=== PATIENT | male | born 1955 | race Caucasian/White ===

== ENCOUNTER 2024-09-06 19:34 | Inpatient (IN) | payer OTHER, SELFPAY ==
[2024-09-06 15:28] VITALS: BP 122/78
[2024-09-06 16:16] LABS: Hematocrit 39.3 % (39.0-52.0); Hemoglobin 13.6 g/dL (13.0-18.0); Mean Corp Hgb Conc. 34.6 g/dL (33.0-37.0); Mean Corpuscular Volume 87.3 fL (80.0-94.0); Nucleated Red Blood Cells % 0 % (-); Platelet Count 209 10^3/uL (130-400); Red Cell Dist. Width 13.2 % (11.5-14.5)
[2024-09-06 16:33] LABS: ALT (SGPT) 21 U/L (0-50); AST (SGOT) 27 U/L (17-59); Albumin 4.2 g/dl (3.5-5.0); Alkaline Phosphatase 67 U/L (38-126); Blood Urea Nitrogen 23 mg/dl (9-20); Calcium 9.5 mg/dl (8.4-10.2); Carbon Dioxide 28 mmol/L (22-30); Chloride 107 mmol/L (98-107); Glucose 91 mg/dl (70-99); Potassium 4.7 mmol/L (3.5-5.1); Sodium 140 mmol/L (135-145); Total Protein 7.2 g/dl (6.3-8.2); eGFR > 60.00
--- NOTE | 2024-09-06 17:34 | ED.SKININJ ---
HPI-Injury
General
Chief Complaint: Bite
Source: patient
Exam Limitations: none
Time Seen by Provider: 09/06/24 17:22
History of Present Illness-Injury
Initial Injury comments:
Patient was bitten by his own cat last evening. Cat is old and chronically ill. Baseline behavior however. Cat has not had rabies vaccine but is an indoor cat. Tetanus less than 5 to the patient. Complaining of swelling pain. Was sent in by
the primary physician for IV antibiotics
Past History
Past History
ED Past Surgical History: Other (Sinus surgery/LASEK surgery)
Review of Systems
Review of Systems
All Other Systems: Not applicable
Constitutional: Denies fever
Phy Exam
Physical Exam
Physical Exam:
GENERAL: Alert and oriented in no apparent distress
CARDIAC: Regular rate and rhythm
LUNGS: No respiratory distress
NEUROLOGICAL: Alert and oriented , grossly non-focal
SKIN: Warm and dry. Right hand with 3 puncture wounds dorsally with surrounding cellulitis and swelling. Lymphangitis extending up to the mid upper arm.
MUSCULOSKELETAL: Edema to the right hand. Good distal pulses and color. Some pain with extension of the digits. Motor or sensory neurovascular intact otherwise
PSYCH: Normal and appropriate interaction.
Course
Orders/Labs/Results
Orders:
Orders
09/06/24 Dinner
NPO
Allow oral meds: Yes
Allow clear liquids: No
NPO with Ice Chips: No
09/06/24 15:34
CR Hand - Right Min 3 Views Urgent
Comment:
Reason For Exam: cat bite
CR Wrist - Right Min 3 Views Urgent
Comment:
Reason For Exam: cat bite
09/06/24 15:58
Complete Blood Count/With Diff Urgent
Comprehensive Metabolic Panel Urgent
09/06/24 17:31
Ketorolac [Toradol] 15 mg IV NOW STA
09/06/24 17:58
Ampicillin/Sulbactam 3 G [Unasyn] 3 gm 0.9% Sodium Chloride 100 ml [Nss] 100 ml IV NOW
09/06/24 18:46
Consult Orthopedic [ORTHOPEDIC CONSULT] Routine
Consulting Provider: Federico Lopez
Was physician already notified: Yes
Reason for consult: Cat bite right hand right wrist with lymphangitis
09/06/24 18:47
Admit/Transfer Patient As Directed
Co-Sign Provider:
Level of Care: Inpatient admission
Assign to:: Medical/Surgical
Physician / Group: norma bradley
Diagnosis: Right hand/wrist cat bite with lymphangitis
Reason for Hospitalization: Right hand/wrist cat bite with lymphangitis
Expected length of stay greater than two midnights?: Yes
ELOS- Estimated Length of Stay in days: 3
I certify the patient meets the requirements for IP care: Yes
Code Status As Directed
Resuscitation Status: Full Code
09/06/24 18:50
PRN Pain Medication Management As Directed
May give lesser potent ordered pain med per pt: Yes
preference::
Protocol:: Medication orders for pain may be administered in a
manner that supports deferring to patient preference
when the pt is:
- Requesting an ordered lesser potent pain medication.
Least to most potent pain medications are defined
as: acetaminophen < NSAID < tramadol < opioids
(morphine, oxycodone, hydromorphone).
- Requesting a lesser dose of the same medication IF
ORDERED.
- Requesting a less intrusive route of administration
if both routes are prescribed by the provider (PO <
IV).
09/06/24 18:51
Ondansetron Injectable [Zofran] 4 mg IV Q6HPRN PRN
Oxycodone/Acetaminophen [Percocet 5/325] 1 tablet PO NOW STA
09/06/24 19:05
Volar Right-Treatment ONCE
Abnormal Lab Results
09/06/24
15:58
RBC 4.50 L 10^6/uL
(4.70-6.10)
MPV 10.7 H fL
(7.4-10.4)
Absolute Neuts (auto) 7.1 H 10^3/uL
(1.4-6.5)
Absolute Monos (auto) 0.8 H 10^3/uL
(0.1-0.6)
Neutrophils % 76.5 H %
(42.2-75.2)
Lymphocytes % 13.6 L %
(20.5-51.1)
BUN 23 H mg/dl
(9-20)
09/06/24 15:58
09/06/24 15:58
Vital Signs
Initial and Last Documented VS:
Initial Vital Signs
Temp Pulse Resp BP Pulse Ox
98.4 F 87 15 122/78 99
09/06/24 15:28 09/06/24 15:28 09/06/24 15:28 09/06/24 15:28 09/06/24 15:28
Last Documented Vital Signs
Temp Pulse Resp BP Pulse Ox
98.4 F 87 15 122/78 99
09/06/24 15:28 09/06/24 15:28 09/06/24 15:28 09/06/24 15:28 09/06/24 17:36
MDM/Problems Addressed
Differential Diagnosis Includes:
Cellulitis/lymphangitis. Warrants IV antibiotics. Pain control. Admission for further care
*Radiology
Radiology exam reviewed: preliminary read by ED provider (neg)
*Pulse Oximetry
SaO2: 99
Oxygen Mode of Delivery: Room air
Patient hypoxic: no (99)
*Critical Care Note
Total Time (30-74mins, 75-104mins- exclusive of procedures): Not Applicable
Update Note
Update Note:
I did stress the Should be checked by the patient's vet for rabies despite them being sure he is a totally in house cat
ED Attending Note
-
Portions of this chart may have been created with voice recognition software.� Occasional wrong word or��sound alike� substitutions may have occurred due to the inherent limitations of voice recognition software.
Discharge Plan
Departure
Patient Disposition: Admit
Date of Disposition: 09/06/24
Time of Disposition: 17:36
Presentation/result/management discussed w/ accepting MD/DO: Hospitalist
Discharge Problem:
Cellulitis/lymphangitis secondary to cat
Prescriptions:
No Action
acetaminophen [Tylenol] 325 mg Tablet
650 mg PO ONCE PRN (Reason: mild pain)
simvastatin 40 mg Tablet
40 mg PO Q48H@2200
naproxen sodium [Aleve] 220 mg Tablet
440 mg PO DAILYPRN PRN (Reason: mild pain)
Systane (PF) 0.4-0.3 % Dropperette
1 drp BOTH EYES DAILYPRN PRN (Reason: allergies)
cholecalciferol (vitamin D3) 25 mcg (1,000 unit) Tablet
25 mcg PO DAILY
prednisolone acetate 1 % Drops,Suspension
1 drp RIGHT EYE QID
Patient Comments:
09/06/2024, pt. started using this med. yesterday (09/05/2024) for preparation for cataract surgery; was not able to find this med. in pharmacy and ecw records.
Referrals:
UNKNOWN - PT DOES,NOT KNOW [Unknown Provider]
Interventions
Interventions:
*Risk Screen - Suicide Last Done: 09/06/24 15:28
*General Assessment Last Done: 09/06/24 17:43
*Neglect/Abuse Screening Last Done: 09/06/24 15:28
ED-Skin Assessment Last Done: 09/06/24 17:41
Discharge Date and Time
Print Language: JORDANIAN
[2024-09-06] MEDS: TORADOL 15 MG IV (17:37)
[2024-09-06 17:43] VITALS: BMI 24.9
[2024-09-06] MEDS: UNASYN IV ×2 (18:15→23:58)
--- NOTE | 2024-09-06 18:18 | HPS.HSE ---
Addendum entered and electronically signed by Luana Hidalgo MD 09/06/24 22:26:
I have personally seen and examined the patient. I have reviewed the patient with [employer]DER or PA and agree with their note.
68-year-old male with HLD presenting with right arm pain, erythema, and swelling due to pet cat bite.
On exam VSS, NAD, MMM, PERRLA, heart RRR, no MGR, Lungs CTAB, Abd soft/nt/nd/NABS, no LE edema, right hand and arm very swollen with erythema and tenderness, multiple puncture wound, unable to express pus.
I reviewed the labs and imaging.
Assessment and plan:
Right hand cat bite with cellulitis and lymphangitis -
IV antibiotics and pain control
Ortho consulted and they have asked the patient remain n.p.o.
Preoperative medical evaluation -
RCRI score 0, no known heart disease, not on any blood thinners, will check preop EKG as last was in 2008 and NSR, from medical standpoint patient optimized and can proceed to OR with no further testing
Original Note:
Family Physician
-
Family Physician: KEVIN Sahu
Chief Complaint
-
Cat bite right hand and right wrist
History of Present Illness
68-year-old male who was bit by his cat last evening 09/05/2024 to his right dorsal hand overlying the extensor tendons of the thumb at the level of the wrist, index finger, middle finger and fourth finger at the level of the hand with erythema and
lymphangitis extending into the right upper arm. 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 He reports last night he took 2 Aleve and this morning Tylenol without any relief he had widespread erythema that
was rapid onset. The patient is right-handed. The patient reports his cat is old chronically ill has not had rabies vaccine but is an indoor cat his tetanus is up-to-date he is complaining of swelling and pain. He has past medical history of
hyperlipidemia.
Medical History
Past Medical History
Past Medical History: Reports Other (HLD)
Past Surgical History: Reports Other
Additional Past Surgical History:
Sinus surgery 2003, Lasix eye surgery 2007
Social History
Tobacco: Non-smoker
Alcohol: None
Drug: None
Personal:
Living: With Family ()
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
Family History
Family History: Other (Mother age 82 RA Father age 95 CHF patient is only child)
Allergies / Home Medications
Allergies reflects when Allergies were last updated in [facility].
Home Medications with original date entered in [facility]
Allergy/Medication List:
Allergies
Allergy/AdvReac Type Severity Reaction Status Date / Time
No Known Allergies Allergy Verified 09/06/24 15:33
Home Medications
acetaminophen 325 mg tablet (Tylenol) 650 mg PO ONCE PRN mild pain 09/06/24
cholecalciferol (vitamin D3) 25 mcg (1,000 unit) tablet 25 mcg PO DAILY 09/06/24
naproxen sodium 220 mg tablet (Aleve) 440 mg PO DAILYPRN PRN mild pain 09/06/24
peg 400-propylene glycol (PF) 0.4 %-0.3 % eye drops in a dropperette (Systane (PF)) 1 drp BOTH EYES DAILYPRN PRN allergies 09/06/24
prednisolone acetate 1 % eye drops,suspension 1 drp RIGHT EYE QID 09/06/24
simvastatin 40 mg tablet 40 mg PO Q48H@2200 09/06/24
Review of Systems
-
History Source: Patient and Family ()
A 12 point ROS was completed and negative except as noted: Yes
Constitutional: Denies Fever
EENT: Denies Sore Throat or Runny Nose
Respiratory: Denies Cough or Trouble Breathing
Cardiac: Denies Chest Pain, Diaphoresis, Palpitations or Syncope
Abdomen/GI: Denies Abdominal Pain, Nausea, Vomiting, Diarrhea or Constipated
: Denies Dysuria, Frequency, Flank Pain or Incontinence
Musculoskeletal: Reports Joint Pain (Right hand and wrist) and Other (right dorsal hand overlying the extensor tendons of the thumb at the level of the wrist, index finger, middle finger and fourth finger at the level of the hand with erythema and
lymphangitis extending into the right upper arm)
Skin: Denies Itching or Rash
Neurological: Denies Dizzy or Headache
Endocrine: Reports No Symptoms
Hematologic/Lymphatic: Reports No Symptoms
Psych: Reports Calm
Physical Exam
Vital Signs
Vital Signs
Temp Pulse Resp BP Pulse Ox
98.4 F 87 15 122/78 99
09/06/24 15:28 09/06/24 15:28 09/06/24 15:28 09/06/24 15:28 09/06/24 17:36
Physical Exam
General: Conversant and Pain; No Fever or Chills
HEENT: NormoCephalic, Anicteric, Moist mucous membranes, PERRLA and Gillis Conjunctivae
Respiratory: Clear; No Wheezes, Rales or Rhonchi
Cardiac: S1/S2 and Regular Rhythm; No Murmur, Rub, Gallop or Peripheral Edema
GI: Soft, Non Tender, Non Distended and Normal Bowel Sounds
Genito-urinary: Deferred by me
Musculoskeletal: No Clubbing, Cyanosis (To all finger nailbeds) and Other (right dorsal hand overlying the extensor tendons of the thumb at the level of the wrist, index finger, middle finger and fourth finger at the level of the hand with erythema
and lymphangitis extending into the right upper arm)
Skin: Warm and Dry
Neuro: AO x 3, Nonfocal/grossly intact, Cranial Nerves Intact and Other (Limited range of motion of fingers and wrist due to cat bite overlying extensor tendons); No Slurred Speech, Facial Droop, Tremors or Sedated
Psych: Calm
Laboratory Results
-
09/06/24 15:58
09/06/24 15:58
Laboratory Results
Total Bilirubin 0.7 mg/dl (0.2-1.3) 09/06/24 15:58
AST 27 U/L (17-59) 09/06/24 15:58
ALT 21 U/L (0-50) 09/06/24 15:58
Alkaline Phosphatase 67 U/L (38-126) 09/06/24 15:58
Impression/Plan
-
Impression/plan:
Admit to [facility]
#Cat bite right dorsal hand/wrist overlying tendons thumb, index, middle finger with cellulitis and lymphangitis
Patient is right handed
-Consult Ortho-Dr. Lopez aware will have patient n.p.o. starting now 1843
- Percocet as needed
- IV Unasyn
- Follow CBC
-PT/OT
#HLD
Continue simvastatin every other day
DVT prophylaxis
Subcu heparin
Full code
--- NOTE | 2024-09-06 18:46 | PHANOTE ---
09/06/2024, pt. states to have started Prednisolone eye drops in preparation for cataract surgery; could not confirm this med. w/ pharmacy and ecw records.
[2024-09-06] MEDS: PERCOCET 5/325 1 TABLET PO ×2 (19:41→23:58)
[2024-09-06] MEDS: ZOFRAN 4 MG IV (19:43)
[2024-09-06 20:01] VITALS: BP 124/82
[2024-09-06 20:52] VITALS: BP 117/78; BMI 27.0
[2024-09-06] MEDS: NSS 1000 IV (21:30)
--- NOTE | 2024-09-06 22:32 | PTCARENOTE ---
Patient arrived to unit with dx of Right hand/ wrist cat bite with lymphangitis. AAOX3. Right hand brace in place with multiple small puncture scabs to right hand and + 2 swelling, redness and warmth. Oriented to unit. Call cheng within reach.
[2024-09-06 23:21] VITALS: BP 105/58
[2024-09-07] MEDS: UNASYN IV ×4 (05:16→23:47)
[2024-09-07] MEDS: PERCOCET 5/325 1 TABLET PO ×2 (05:23→10:04)
--- NOTE | 2024-09-07 06:27 | CON.ORTHO ---
Consultation
-
Date/Time Consultation Requested: 09/06/2024 @ 18:46
Date/Time Consultation Performed: 09/07/2024 @ 6:15 AM
Requesting Provider: KEVIN Wilkinson
Performing Provider: Augustine Farias PA-C for Dr. Federico Lopez
Reason for Consultation: Right Hand/Wrist Cat Bite
Consultation - Orthopedics
History
Orthopedic Surgery Note
CC: Right Hand/Wrist Cat Bite x Friday09/05/2024 @ 9/10 PM
HPI: The patient is a 68-year-old [id number] male with a past medical history significant for Hyperlipidemia who presented to [facility] yesterday evening 09/06/2024 at the request of his PCP for evaluation of right hand/wrist cat bite. DOI:
09/05/2024. He reports sustaining a cat bite to the dorsal and radial aspects of his right hand/wrist with erythema and lymphangitis extending into the right upper arm. He reports that he took 2 Aleve yesterday morning and Tylenol without any
relief. Due to rapid onset of widespread erythema with pain and swelling, he presented to his PCP who recommended reporting to the ED for initiation of IV antibiotics. The patient reports that his cat is old and chronically ill; has not had rabies
vaccine but is an indoor cat. He reports that his tetanus is up-to-date. IV Unasyn was started. He reports increased pain to the radial and dorsal aspects of the right hand/wrist with range of motion. Since admission, he reports that his pain
has improved, however continues with streaking erythema about his right upper extremity and swelling. He denies any paresthesias. Orthopedic Surgery was consulted for treatment recommendations moving forward. He is currently NPO.
PMH/PSH: Hyperlipidemia. Sinus surgery 2003. Lasix eye surgery 2007.
Medications: Reviewed.
Family History: Family history was reviewed. Noncontributory.
Social history: Nonsmoker, no illicit drugs.
Exam
General appearance: Pleasant. No acute distress.
Head: Normocephalic/atraumatic
Nose: No lesions or discharge.
Skin: No obvious rashes or open wounds
Lungs: No audible wheezing, no cough or sputum production
Musculoskeletal:
RUE: Physical examination of the right upper extremity reveals 5 cat bites/puncture wounds to the radial and dorsal aspects of the right wrist. There is some scant purulence about the radial puncture wound. There is no active drainage. There is
erythema noted to the dorsum of the right hand/wrist which streaks proximally about the volar aspect of the antebrachium into the brachium. There is tenderness to palpation over the radial and dorsal aspects of the right wrist. There is tenderness
to palpation dorsally between the index and thumb/first webspace. There is no tenderness to palpation about the flexor tendon sheaths. He is able to demonstrate approximately 85% of a full composite fist, however endorses pulling/pain to the
dorsal wrist while doing so. Wrist range of motion is intact, however overall diminished with pain. Elbow range of motion intact. Fingers are pink and warm. Capillary refill is less than 2 seconds. Sensation is intact to light touch. NVI
distally.
Xrays:
CR Hand - RIGHT Min 3 Views was obtained at [facility] on 09/06/2024 and was made available for my review today. Impression: No acute osseous abnormality.
CR Wrist - RIGHT Min 3 Views was obtained at [facility] on 09/06/2024 and was made available for my review today. Impression: There is no evidence of acute fracture or dislocation.
Assessment: 68-year-old bkuat-ygfq-[id number] male with cat bite to the dorsal wrist/hand with cellulitis and lymphangitis.
Plan:
1) Continue with IV Abx per primary team (IV Unasyn).
2) Incorporate warm soaks TID for ~5-10 minutes.
3) Ice therapy and elevation for edema control. Pain control per primary team.
4) Erythema outlined with marker.
5) May utilize Velcro cock-up wrist brace as needed for comfort/immobilization.
6) Patient to remain NPO for the time being. Discussed with Dr. Duenas, who will also evaluate the patient this morning to ensure no acute surgical intervention is necessary. Further recommendations to come after Dr. Duenas evaluates patient.
7) Orthopedic surgery will continue to follow.
UPDATE - Patient seen and evaluated by Dr. Duenas. Patient may have a diet. Continue with Abx and warm soaks. Orthopedic surgery will continue to follow along and closely monitor clinical picture.
Allergies / Home Medications
Allergy/AdvReac Type Severity Reaction Status Date / Time
No Known Allergies Allergy Verified 09/06/24 15:33
�Medication �Instructions �Recorded
acetaminophen 325 mg tablet 650 mg PO ONCE PRN mild pain 09/06/24
(Tylenol)
cholecalciferol (vitamin D3) 25 25 mcg PO DAILY 09/06/24
mcg (1,000 unit) tablet
fluocinonide 0.1 % topical cream 1 applic topical DAILY PRN itching 09/06/24
naproxen sodium 220 mg tablet 440 mg PO DAILYPRN PRN mild pain 09/06/24
(Aleve)
peg 400-propylene glycol (PF) 0.4 1 drp BOTH EYES DAILYPRN PRN 09/06/24
%-0.3 % eye drops in a dropperette allergies
(Systane (PF))
prednisolone acetate 1 % eye 1 drp RIGHT EYE QID 09/06/24
drops,suspension
simvastatin 40 mg tablet 40 mg PO Q48H@2200 09/06/24
Vital Signs / Lab Results
Temp Pulse Resp BP Pulse Ox
98.8 F 72 20 105/58 98
09/06/24 23:21 09/06/24 23:21 09/06/24 23:21 09/06/24 23:21 09/06/24 23:21
[2024-09-07 07:37] LABS: Hematocrit 36.9 % (39.0-52.0); Hemoglobin 12.6 g/dL (13.0-18.0); Mean Corp Hgb Conc. 34.1 g/dL (33.0-37.0); Mean Corpuscular Volume 87.2 fL (80.0-94.0); Nucleated Red Blood Cells % 0 % (-); Platelet Count 181 10^3/uL (130-400); Red Cell Dist. Width 13.2 % (11.5-14.5)
[2024-09-07] MEDS: VITAMIN D3 (cholecalciferol) 25 MCG PO (07:40)
--- NOTE | 2024-09-07 07:44 | W.PN.HOSP.TC ---
Addendum entered and electronically signed by Sumi Ramirez MD 09/07/24 14:20:
I saw and evaluated the patient independently. I reviewed the resident�s note and agree with findings and plan as documented by Dr. Allen.
GENERAL: well developed, well nourished, male tearful and in distress from pain
HEENT: NC/AT
HEART: regular rate and rhythm, +S1, +S2
LUNGS : clear to auscultation bilaterally
ABDOM: soft, nontender, nondistended, + bowel sounds
EXT: no cyanosis, clubbing--right hand swollen, red, warm, with bite puncture gonzales appearing to be draining pus on dorsum of hand
NEUROLOGIC: grossly intact
Cellulitis and lymphangitis of the right hand secondary to cat bite--apprec ortho--no surgery at this time--cont IV unasyn--consult ID--pain control
HLD--cont statin
Vitamin D deficiency--cont supplements
DVT proph--SC heparin
CODE STATUS--full code
Original Note:
Today's Communication/Plan
-
Patient no longer n.p.o. as surgery not indicated -regular diet
Continue IV Unasyn -infectious diseases consulted
0.25 mg IV Dilaudid added every 4 hours as needed
Trial of 30 mg Toradol for pain control
Assessment / Plan
Assessment / Plan
HPI: Patient is a 68-year-old male with a past medical history of hyperlipidemia who presented to the emergency department with right arm pain, erythema, and swelling due to a pet cat bite. His cat bit him on 09/05/2024 at the dorsal area of his
right hand overlying the extensor tendons of the thumb at the level of the wrist, index finger, middle finger, and fourth finger at the level of the hand with erythema and lymphangitis extending into the right upper arm. He is right-handed and
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 The evening prior to his presentation he took 2 Aleve and the morning of his presentation he took a Tylenol without any relief or reduction in the widespread erythema that was on his hand. The
patient reported that his cat is old and chronically ill. The cat is not been vaccinated for rabies. He believes that his tetanus shot is up-to-date. The patient was admitted to the hospital for cellulitis and lymphangitis secondary to cat bite.
Assessment/Plan:
-Cellulitis and lymphangitis of the right hand secondary to cat bite: Unresolved
Orthopedics has been consulted�appreciate orthopedic recommendations -wound care as per orthopedic recommendations
Patient no longer n.p.o. after being evaluated by orthopedics -they do not believe that surgical intervention is necessary at the present time and will continue to follow
Continue IV Unasyn
Infectious diseases consulted -swelling and erythema has not reduced despite IV antibiotics -possible delayed response to antibiotics
-Acute pain of the right hand and wrist:
Patient received 30 mg IV Toradol -we will check patient response to pain med
Dilaudid 0.25 mg IV every 4 hours as needed added
- Hyperlipidemia: Stable�monitoring
Continue home simvastatin
-Vitamin D deficiency: Stable�monitoring
Continue home vitamin supplementation
FULL CODE STATUS
DVT Prophylaxis: Heparin subcu
Imaging:
- X-ray of the right hand 3 views conducted on 09/06/2024:
No acute osseous abnormality.
- X-ray of the right wrist 3 views conducted on 09/06/2024:
There is no evidence of acute fracture or dislocation
Procedures:
Anticipated Discharge: 24 - 48 hours
Subjective/Interval History
-
Date of Service: September 07, 2024
Met with patient at the bedside. He is calm and pleasant in discussion and had many questions about his swelling with erythema. He is able to move his hand and arm but it is extremely painful to do so. He explained how the cat bite occurred and
it involved his cat getting upset with him while he was petting the cat. Apparently the cat has an inflammatory condition that requires weekly injections. Unfortunately, a couple days before the cat was due for a follow-up injection this episode
occurred and the cat bit down extremely hard and pierced the skin of the hand. The patient likened the bite to 'a engineering manager electronics.'
Objective Data
-
Labs:
Labs
09/07/24 07:09
09/07/24 07:09
Vital Signs:
Vital Signs
Temp Pulse Resp BP Pulse Ox
98.8 F 72 20 105/58 98
09/06/24 23:21 09/06/24 23:21 09/06/24 23:21 09/06/24 23:21 09/06/24 23:21
I&O
09/06/24 09/07/24 09/08/24
06:59 06:59 06:59
Intake Total 810 / 810
Balance 810 / 810
Review of Systems
-
Constitutional: Reports No Symptoms
EENT: Reports No Symptoms Reported
Respiratory: Reports No Symptoms
Cardiac: Reports No Symptoms
Abdomen/GI: Reports No Symptoms
Breast: Reports No Symptoms
Genitourinary: Reports No Symptoms
Musculoskeletal: Reports Joint Pain (Right hand and wrist), Joint Swelling (Right hand and wrist), Muscle Pain (Right hand and wrist) and Muscle Stiffness (Right hand and wrist)
Skin: Reports Other (Erythema distributed throughout the right hand on the dorsal surface. Punctate spots seen where the cat pierced the skin with its teeth. Pus accumulation near the bite gonzales.)
Neuro: Reports No Symptoms
Endocrine: Reports No Symptoms
Physical Exam
-
General: Well Developed, Well Nourished and No Apparent Distress
HEENT: Normocephalic and Atraumatic
Respiratory: Clear to Auscultation
Cardiac: Regular Rhythm and S1/S2
Breast: Deferred by me
GI: Soft, Nontender and Nondistended
Musculoskeletal: No Clubbing, No Cyanosis and Edema, Right Upper Extrem
Skin: Warm, Dry and Other (Obvious cellulitis, increased temperature, erythema of the right hand, wrist, and forearm on the dorsal surface. Erythema also on the ventral portion of the right forearm as well.)
Neuro: Awake, Alert, Oriented and AO x 3
Psych: Calm
[2024-09-07 08:28] LABS: ALT (SGPT) 16 U/L (0-50); AST (SGOT) 21 U/L (17-59); Albumin 3.5 g/dl (3.5-5.0); Alkaline Phosphatase 58 U/L (38-126); Blood Urea Nitrogen 21 mg/dl (9-20); Calcium 8.6 mg/dl (8.4-10.2); Carbon Dioxide 26 mmol/L (22-30); Chloride 110 mmol/L (98-107); Estimated Creatinine Clearance 56 ml/min; Glucose 85 mg/dl (70-99); Potassium 4.1 mmol/L (3.5-5.1); Sodium 139 mmol/L (135-145); Total Protein 6.1 g/dl (6.3-8.2); eGFR > 60.00
[2024-09-07 08:31] VITALS: BP 101/59
--- NOTE | 2024-09-07 10:37 | PTCARENOTE ---
warm soaks to R hand/ wrist for 10 minutes initiated per standing order
--- NOTE | 2024-09-07 11:53 | CM ---
CM reviewed chart, patient seen bedside, initial assessment completed. Patient resides with his in a two story home, no steps to enter, full flight of stairs to second floor. Patient denies use of DME, VN/SNF history. Patient PCP Dr. Poon
Jael, pharmacy [facility], confirms prescription coverage. Patient denies insecurities at home. Patient remains on IV antibiotics. CM will continue to follow for all discharge planning needs.
Plan; home no needs likely
[2024-09-07] MEDS: ZOFRAN 4 MG IV (12:05)
[2024-09-07] MEDS: TORADOL 30 MG IV (13:49)
--- NOTE | 2024-09-07 15:30 | PTCARENOTE ---
Patient warm soaks applied to R hand/wrist per standing order 10 minutes
[2024-09-07] MEDS: NSS 1000 IV (15:40)
[2024-09-07 16:23] VITALS: BP 102/64
--- NOTE | 2024-09-07 17:44 | CON.ID ---
Consultation
-
Date/Time Consultation Requested: 09/07/2024 1101
Date/Time Consultation Performed: 09/07/2024 1725
Requesting Provider: Dr. Allen
Performing Provider: Dr. Ramon
Reason for Consultation: Right hand cat bite
Chief Complaint / Past History
History of Present Illness
Alexander Meade is a 68-year-old man being evaluated at the request of Dr. Allen regarding a right hand cat bite. History is obtained from chart review, along with patient interview.
The patient reports that he has a 15-year-old cat that has several medical conditions, including gingivitis and 'body inflammation'. The Evidently received shots of steroids every 3 weeks. On Friday night, the patient was petting the cat, when the
cat turned and bit his hand several times on the dorsal aspect of the hand. After a quick 'smack' the cat released, and at that point in time the patient's hand was bleeding. He quickly washed the area, and then applied Neosporin and bandages to
the area. Later, because the hand was hurting and swollen he applied an ice pack. The next day, he made an appointment with his PCP, but because of the noted swelling and the development of lymphangitic spread up his forearm, the patient was sent
to the emergency room for further evaluation. He arrived in the ER around 3 PM. He was started on empiric antibiotics. Since that time, the hand has continued to swell, and Infectious Diseases is asked to comment upon further antimicrobial
therapy.
Patient denies any axillary pain. He denies any fevers or chills. He notes that there has been some drainage from several of the puncture areas.
Past History
Additional Past Medical History:
HDL
Eczema
Tinnitus
Additional Past Surgical History:
Lasix surgery
Sinus surgery
Allergy History:
No Known Allergies Allergy (Verified 09/06/24 15:33)
Medications Reviewed: Yes
Current Antibiotics:
Unasyn 3 g IV every 6 hours
Social History
Tobacco: Non-Smoker
Alcohol: None
Drug: None
Personal:
Living: With Family
Employment: Employed
Family History
Family History: Not Pertinent
Review of Systems
Vital Signs
Temp Pulse Resp BP Pulse Ox
98.1 F 78 16 102/64 96
09/07/24 16:23 09/07/24 16:23 09/07/24 16:23 09/07/24 16:23 09/07/24 16:23
Physical Exam
Physical Exam
Constitutional: No Acute Distress, Comfortable and Non-toxic
Head: Normocephalic
Eyes: Pupils Equal, Pupils Round, No Conjunctival Hemorrhage and Sclera Anicteric
Oral: No Thrush and No Ulcers
Cardiovascular: Regular Rate and S1/S2; Negative S3/S4
Pulmonary: Clear; Negative Wheezes, Rales or Rhonchi
Gastrointestinal: Soft, Non Tender, Non Distended and Normal Bowel Sounds
Extremities: Edema (Right hand) and Erythema (Right hand); Negative Cyanosis
Musculoskeletal: Other (Decreased range of motion right hand)
Skin: Warm and Dry
Neurological: Awake and Alert
Psychological: Calm
Lab / Diagnostic Study Results
09/07/24 07:09
09/07/24 07:09
Abs Immat Gran (auto) 0.0 10^3/uL (0-0.05) 09/07/24 07:09
Absolute Neuts (auto) 6.5 10^3/uL (1.4-6.5) 09/07/24 07:09
Absolute Lymphs (auto) 1.3 10^3/uL (1.2-3.4) 09/07/24 07:09
Absolute Monos (auto) 0.9 10^3/uL (0.1-0.6) H 09/07/24 07:09
Absolute Basos (auto) 0.0 10^3/uL (0-0.2) 09/07/24 07:09
Immature Gran % 0.2 % (0-0.5) 09/07/24 07:09
Neutrophils % 74.2 % (42.2-75.2) 09/07/24 07:09
Lymphocytes % 14.8 % (20.5-51.1) L 09/07/24 07:09
Monocytes % 9.7 % (1.7-9.3) H 09/07/24 07:09
Eosinophils % 0.9 % (0-6) 09/07/24 07:09
Basophils % 0.2 % (0-2) 09/07/24 07:09
Microbiology Results
Imaging:
09/06/2024 x-ray right hand and wrist: No evidence for acute fracture or dislocation.
Assessment / Plan
Cat bite right hand
Right hand cellulitis
Suspected right hand tenosynovitis
Right forearm lymphangitis
Hx HLD
Recommendations:
Continue with Unasyn.
Right upper extremity elevation.
Would avoid cold compress for now.
Will order K-pad.
Monitor for clinical improvement. If swelling persists, would have low threshold for MRI imaging to assess for developing collection.
--- NOTE | 2024-09-07 20:00 | PTCARENOTE ---
Pt's right hand was soaked in warm water for 10-15 minutes per order.
[2024-09-07] MEDS: TYLENOL 650 MG PO (20:06)
[2024-09-07] MEDS: LIPITOR 20 MG PO (22:14)
[2024-09-07 23:22] VITALS: BP 102/58
[2024-09-08] MEDS: UNASYN IV ×4 (05:18→23:53)
[2024-09-08] MEDS: TYLENOL 650 MG PO ×2 (05:21→19:46)
--- NOTE | 2024-09-08 07:36 | W.PN.HOSP.TC ---
Addendum entered and electronically signed by Sumi Ramirez MD 09/08/24 15:13:
I saw and evaluated the patient independently. I reviewed the resident�s note and agree with findings and plan as documented by Dr. Allen.
GENERAL: well developed, well nourished male in no apparent distress
HEENT: NC/AT
HEART: regular rate and rhythm, +S1, +S2
LUNGS : clear to auscultation bilaterally
ABDOM: soft, nontender, nondistended, + bowel sounds
EXT: no cyanosis, clubbing--right hand swollen, red, warm, with bite puncture gonzales appearing to be draining pus on dorsum of hand--with some improvement of redness of forearm and some improvement of swelling to hand
NEUROLOGIC: grossly intact
Cellulitis and lymphangitis of the right hand secondary to cat bite--apprec ortho--no surgery at this time--cont IV unasyn--apprec ortho/ID--for MRI hand--cont soaks and OT
HLD--cont statin
Vitamin D deficiency--cont supplements
DVT proph--SC heparin
CODE STATUS--full code
Original Note:
Today's Communication/Plan
-
Continue IV Unasyn
Appreciate ID recommendations
Appreciate Ortho recommendation
Possibility of MRI of the hand to rule out any acute processes
Assessment / Plan
Assessment / Plan
HPI: Patient is a 68-year-old male with a past medical history of hyperlipidemia who presented to the emergency department with right arm pain, erythema, and swelling due to a pet cat bite. His cat bit him on 09/05/2024 at the dorsal area of his
right hand overlying the extensor tendons of the thumb at the level of the wrist, index finger, middle finger, and fourth finger at the level of the hand with erythema and lymphangitis extending into the right upper arm. He is right-handed and
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 The evening prior to his presentation he took 2 Aleve and the morning of his presentation he took a Tylenol without any relief or reduction in the widespread erythema that was on his hand. The
patient reported that his cat is old and chronically ill. The cat is not been vaccinated for rabies. He believes that his tetanus shot is up-to-date. The patient was admitted to the hospital for cellulitis and lymphangitis secondary to cat bite.
Assessment/Plan:
-Cellulitis and lymphangitis of the right hand secondary to cat bite: Unresolved
Orthopedics has been consulted�appreciate orthopedic recommendations -wound care as per orthopedic recommendations
Patient no longer n.p.o. after being evaluated by orthopedics -they do not believe that surgical intervention is necessary at the present time and will continue to follow
Continue IV Unasyn
Infectious diseases consulted -appreciate infectious diseases recommendations�they recommended continuing Unasyn as it is the most effective medication to treat this patient's cellulitis. Oral antibiotics can be used but they will not be as
effective and it would be recommended that the patient stay on IV antibiotics as long as possible. They recommended MRI to rule out any acute processes
-Acute pain of the right hand and wrist:
Patient given 15 mg IV Toradol every 6 hours as needed based on positive response to Toradol on 09/07/2024
Dilaudid 0.25 mg IV every 4 hours as needed added
Continue current pain management
- Hyperlipidemia: Stable�monitoring
Continue home simvastatin
-Vitamin D deficiency: Stable�monitoring
Continue home vitamin supplementation
FULL CODE STATUS
DVT Prophylaxis: Heparin subcu
Imaging:
- X-ray of the right hand 3 views conducted on 09/06/2024:
No acute osseous abnormality.
- X-ray of the right wrist 3 views conducted on 09/06/2024:
There is no evidence of acute fracture or dislocation
Procedures:
Anticipated Discharge: 24 - 48 hours
Subjective/Interval History
-
Date of Service: September 08, 2024
Met with patient at the bedside. He is doing slightly better than he did yesterday. His pain is much better controlled on the current pain medications that he is being given. He is happy that the swelling is slightly reduced. Patient is
appreciative of the care that he is receiving here.
Objective Data
-
Labs:
Labs
09/08/24 06:55
09/08/24 06:55
Vital Signs:
Vital Signs
Temp Pulse Resp BP Pulse Ox
99.4 F 82 18 102/58 94
09/07/24 23:22 09/07/24 23:22 09/07/24 23:22 09/07/24 23:22 09/07/24 23:22
I&O
09/07/24 09/08/24 09/09/24
06:59 06:59 06:59
Intake Total 810 / 810 1080 / 1080
Balance 810 / 810 1080 / 1080
Review of Systems
-
History Source: Patient
Constitutional: Reports No Symptoms
EENT: Reports No Symptoms Reported
Respiratory: Reports No Symptoms
Cardiac: Reports No Symptoms
Abdomen/GI: Reports No Symptoms
Breast: Reports No Symptoms
Genitourinary: Reports No Symptoms
Musculoskeletal: Reports Joint Pain (Right hand and wrist), Joint Swelling (Right hand and wrist), Muscle Pain (Right hand and wrist), Muscle Stiffness (Right hand and wrist) and Edema (Right hand and wrist)
Skin: Reports Rash (Right hand and wrist) and Other (Right hand and wrist erythema)
Neuro: Reports No Symptoms
Endocrine: Reports No Symptoms
Hematologic / Lymphatic: Reports No Symptoms
Physical Exam
-
General: Well Developed, Well Nourished, No Apparent Distress and Comfortable
HEENT: Normocephalic, Atraumatic and Moist Mucous Membranes
Respiratory: Clear to Auscultation; Negative Wheezes, Rales, Rhonchi or Crackles
Cardiac: Regular Rhythm and S1/S2
Breast: Deferred by me
GI: Soft, Nontender, Nondistended and Normal Bowel Sounds
Rectal: Deferred by Provider
Genito-urinary: Deferred by me
Musculoskeletal: No Clubbing and Edema, Right Upper Extrem (Right hand and wrist)
Skin: Rash (Right hand and wrist), Lesions (Erythema- Right hand and wrist) and Other (Punctate lesions in the distribution of a cat bite with drainage from the wounds. Pus seen.)
Neuro: Awake, Alert, Oriented and AO x 3
Psych: Calm
[2024-09-08 07:52] LABS: Hematocrit 38.9 % (39.0-52.0); Hemoglobin 12.7 g/dL (13.0-18.0); Mean Corp Hgb Conc. 32.6 g/dL (33.0-37.0); Mean Corpuscular Volume 88.6 fL (80.0-94.0); Nucleated Red Blood Cells % 0 % (-); Platelet Count 222 10^3/uL (130-400); Red Cell Dist. Width 13.2 % (11.5-14.5)
--- NOTE | 2024-09-08 08:03 | W.PN.UPDATE ---
Update Note
Progress Note Update
Mr. Meade is sitting comfortably in his chair this morning. He reports his symptoms have improved overnight, but he continues with aching pain in his wrist and hand.
Directed exam of the right upper extremity reveals generalized edema throughout the wrist and hand. Erythema about the wrist, hand and forearm, but this is improved from yesterday and is receding from lines drawn by my colleague. He is able to
wiggle his fingers, and has a small amount of motion in his wrist, which he reports is improved from yesterday. A small amount of purulence was able to be expressed from the medial puncture wound, but otherwise wounds are clean and dry. Sensation
intact to light touch. Capillary refill <2 seconds.
Preliminary gram stain with few WBC, rare gram positive cocci and rare gram negative rods.
Cat bite; cellulitis
--Overall, Alexander seems to be improving on IV antibiotics. Dr. Ramon did take a culture from his puncture wound yesterday and preliminary gram stain is above. Continue treatment per ID, currently unasyn.
--Incorporate warm soaks TID for ~5-10 minutes.
--Ice therapy and elevation for edema control. Pain control per primary team.
--Orthopedics will continue to follow along.
Spoke with Dr. Duenas about patient progress. Given the small amount of purulence able to be expressed this morning, he recommended MRI to ensure there is no underlying collection.
[2024-09-08 08:12] LABS: ALT (SGPT) 15 U/L (0-50); AST (SGOT) 20 U/L (17-59); Albumin 3.7 g/dl (3.5-5.0); Alkaline Phosphatase 63 U/L (38-126); Blood Urea Nitrogen 19 mg/dl (9-20); Calcium 8.9 mg/dl (8.4-10.2); Carbon Dioxide 25 mmol/L (22-30); Chloride 111 mmol/L (98-107); Estimated Creatinine Clearance 52 ml/min; Glucose 89 mg/dl (70-99); Potassium 4.4 mmol/L (3.5-5.1); Sodium 140 mmol/L (135-145); Total Protein 6.4 g/dl (6.3-8.2); eGFR > 60.00
[2024-09-08 08:20] VITALS: BP 121/84
[2024-09-08] MEDS: VITAMIN D3 (cholecalciferol) 25 MCG PO (08:41)
--- NOTE | 2024-09-08 09:00 | PTCARENOTE ---
warm soak applied to R hand/wrist for 10 minutes per standing order
[2024-09-08] MEDS: TORADOL 15 MG IV (11:49)
--- NOTE | 2024-09-08 11:57 | W.PN.ID1 ---
Date of Service
Date of Service: September 08, 2024
Today's Communication
Continue antibiotics.
Assessment / Plan
Cat bite right hand
Right hand cellulitis
Suspected right hand tenosynovitis
Right forearm lymphangitis
Hx HLD
Recommendations:
Continue with Unasyn 3 g IV every 6 hours
Right upper extremity elevation.
Continue K-pad.
Agree with MRI of right hand to assess for evolving collection or tenosynovitis. Will await results.
����������������������������������������������������������
Chief Complaint
-: Other (Cat bite)
Subjective / Review of Systems
Patient seen and examined. Reports that redness of the right hand and forearm is somewhat improved today, although edema persist.
Review of Systems: No Fever and No Chills
Vital Signs / Physical Exam
Vital Signs
Vital Signs
Temp Pulse Resp BP Pulse Ox
98.7 F 70 16 121/84 96
09/08/24 08:20 09/08/24 08:20 09/08/24 08:20 09/08/24 08:20 09/08/24 08:20
Physical Exam
Constitutional: No Acute Distress, Comfortable and Non-toxic
Eyes: Sclera Anicteric
Cardiovascular: S1/S2; Negative S3/S4
Pulmonary: Non Labored
Gastrointestinal: Non Distended
Extremities: Edema (Right upper extremity, right hand) and Erythema (Right upper extremity, right hand)
Skin: Warm and Dry
Wound: Other (Several bite wounds on dorsum of right hand present. Diminished drainage.)
Neurological: Awake and Alert
Psychological: Calm
Objective Data
Lab Data
Lab Results
09/08/24 06:55
09/08/24 06:55
Estimated Creat Clear 52 ml/min 09/08/24 06:55
Total Bilirubin 0.7 mg/dl (0.2-1.3) 09/08/24 06:55
AST 20 U/L (17-59) 09/08/24 06:55
ALT 15 U/L (0-50) 09/08/24 06:55
Alkaline Phosphatase 63 U/L (38-126) 09/08/24 06:55
Most recent labs reviewed.
Micro Results:
09/07/24 17:58 Wound Culture - Pending
Bite Gram Stain - Preliminary
Few WBC
Rare Gram Positive Cocci
Rare Gram Negative Rods
Imaging:
09/06/2024 x-ray right hand and wrist: No evidence for acute fracture or dislocation.
Care Review
Plan reviewed with: Physician (Hospitalist)
--- NOTE | 2024-09-08 14:44 | PTCARENOTE ---
Addendum entered by Ana Mcintosh RN 09/08/24 17:29:
*warm soaks
Original Note:
Warm compression applied to R hand for 10 minutes per standing order
[2024-09-08 15:30] VITALS: BP 134/67
--- NOTE | 2024-09-08 21:45 | PTCARENOTE ---
Warm soak to right hand completed for 10-15 minutes per order.
[2024-09-08 22:53] VITALS: BP 114/57
[2024-09-09] MEDS: UNASYN IV ×3 (05:20→17:23)
[2024-09-09] MEDS: TYLENOL 650 MG PO ×2 (05:22→11:26)
[2024-09-09 06:08] LABS: Hematocrit 39.4 % (39.0-52.0); Hemoglobin 13.2 g/dL (13.0-18.0); Mean Corp Hgb Conc. 33.5 g/dL (33.0-37.0); Mean Corpuscular Volume 87.4 fL (80.0-94.0); Nucleated Red Blood Cells % 0 % (-); Platelet Count 230 10^3/uL (130-400); Red Cell Dist. Width 13.1 % (11.5-14.5)
[2024-09-09 06:32] LABS: ALT (SGPT) 15 U/L (0-50); AST (SGOT) 21 U/L (17-59); Albumin 3.8 g/dl (3.5-5.0); Alkaline Phosphatase 66 U/L (38-126); Blood Urea Nitrogen 16 mg/dl (9-20); Calcium 9.0 mg/dl (8.4-10.2); Carbon Dioxide 24 mmol/L (22-30); Chloride 110 mmol/L (98-107); Estimated Creatinine Clearance 56 ml/min; Glucose 86 mg/dl (70-99); Potassium 4.3 mmol/L (3.5-5.1); Sodium 143 mmol/L (135-145); Total Protein 6.7 g/dl (6.3-8.2); eGFR > 60.00
--- NOTE | 2024-09-09 06:57 | W.PN.UPDATE ---
Update Note
Progress Note Update
Mr. Meade is sitting comfortably in his chair this morning. He reports his symptoms have continued to improve. He endorses mild aching and stiffness with motion, but is pleased with his improvement in motion. He is very eager to be discharged home.
Directed exam of the right upper extremity reveals generalized edema throughout the wrist and hand, improved from yesterday. Erythema about the wrist, hand and forearm, but this is improved from yesterday and has continued receding from lines drawn
by my colleague. He is able to make a composite fist and fully extend fingers, improved from yesterday. He remains stiff in his wrist, but his motion is improved. No drainage or purulence able to be expressed from puncture wounds today. Sensation
intact to light touch. Capillary refill <2 seconds.
Preliminary cultures reveal gram negative bacilli.
MRI Left Hand 09/08/2024 IMPRESSION:
Large amount of dorsal subcutaneous edema compatible with cellulitis.
Mild tenosynovitis of the extensor carpi radialis brevis and longus, extensor pollicis longus, and extensor indices tendons.
No MRI evidence for osteomyelitis or septic arthritis.
Cat bite; cellulitis
--Alexander continues to make improvements in the right direction in regards to his right hand. His swelling, erythema, and motion are improved from my visit with him yesterday morning. His MRI does not reveal any obvious collections and only mild
tenosynovitis. I would recommend continued monitoring on antibiotics. Currently unasyn.
--Continue warm soaks TID for ~5-10 minutes.
--Ice therapy and elevation for edema control. Pain control per primary team.
--Orthopedics will continue to follow along. Plan for dc once deemed stable by medicine and ID. Recommend follow up next week with Dr. Duenas.
[2024-09-09 07:00] VITALS: BP 137/74
--- NOTE | 2024-09-09 07:30 | W.PN.HOSP.TC ---
Addendum entered and electronically signed by Sumi Ramirez MD 09/09/24 14:59:
I saw and evaluated the patient independently. I reviewed the resident�s note and agree with findings and plan as documented by Dr. Allen.
GENERAL: well developed, well nourished male in no apparent distress
HEENT: NC/AT
HEART: regular rate and rhythm, +S1, +S2
LUNGS : clear to auscultation bilaterally
ABDOM: soft, nontender, nondistended, + bowel sounds
EXT: no cyanosis, clubbing--right hand swollen, red, warm, with bite puncture gonzales appearing to be draining pus on dorsum of hand--improving
NEUROLOGIC: grossly intact
Cellulitis and lymphangitis of the right hand secondary to cat bite--apprec ortho--no surgery at this time--IV unasyn but can switch to oral Augmentin at d/c for 21 days --apprec ortho/ID--MRI hand with tenosynovitis mild--cont soaks and OT--ok for
d/c
HLD--cont statin
Vitamin D deficiency--cont supplements
DVT proph--SC heparin
CODE STATUS--full code
Original Note:
Today's Communication/Plan
-
Continue IV Unasyn
Orthopedics recommends follow-up with Dr. Duenas 1 week after discharge
Appreciate infectious diseases recommendations
Continue current wound care
Assessment / Plan
Assessment / Plan
HPI: Patient is a 68-year-old male with a past medical history of hyperlipidemia who presented to the emergency department with right arm pain, erythema, and swelling due to a pet cat bite. His cat bit him on 09/05/2024 at the dorsal area of his
right hand overlying the extensor tendons of the thumb at the level of the wrist, index finger, middle finger, and fourth finger at the level of the hand with erythema and lymphangitis extending into the right upper arm. He is right-handed and
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 The evening prior to his presentation he took 2 Aleve and the morning of his presentation he took a Tylenol without any relief or reduction in the widespread erythema that was on his hand. The
patient reported that his cat is old and chronically ill. The cat is not been vaccinated for rabies. He believes that his tetanus shot is up-to-date. The patient was admitted to the hospital for cellulitis and lymphangitis secondary to cat bite.
Assessment/Plan:
-Cellulitis and lymphangitis of the right hand secondary to cat bite: Unresolved
Orthopedics has been consulted�appreciate orthopedic recommendations -wound care as per orthopedic recommendations
Patient no longer n.p.o. after being evaluated by orthopedics -they do not believe that surgical intervention is necessary at the present time and will continue to follow
Continue IV Unasyn
Infectious diseases consulted -appreciate infectious diseases recommendations�they recommended continuing Unasyn as it is the most effective medication to treat this patient's cellulitis. Oral antibiotics can be used but they will not be as
effective and it would be recommended that the patient stay on IV antibiotics as long as possible.
MRI of the right hand showed no evidence of osteomyelitis or septic arthritis. Mild tenosynovitis of the extensor carpi radialis brevis and longus, extensor pollicis longus, and extensor indices tendons.
-Acute pain of the right hand and wrist:
Patient given 15 mg IV Toradol every 6 hours as needed based on positive response to Toradol on 09/07/2024
Dilaudid 0.25 mg IV every 4 hours as needed added
Continue current pain management
- Hyperlipidemia: Stable�monitoring
Continue home simvastatin
-Vitamin D deficiency: Stable�monitoring
Continue home vitamin supplementation
FULL CODE STATUS
DVT Prophylaxis: Heparin subcu
Imaging:
- X-ray of the right hand 3 views conducted on 09/06/2024:
No acute osseous abnormality.
- X-ray of the right wrist 3 views conducted on 09/06/2024:
There is no evidence of acute fracture or dislocation
- MRI of the right hand conducted on 09/08/2024:
Large amount of dorsal subcutaneous edema compatible with cellulitis.
Mild tenosynovitis of the extensor carpi radialis brevis and longus, extensor pollicis longus, and extensor indices tendons.
No MRI evidence for osteomyelitis or septic arthritis.
Procedures: Not applicable
Anticipated Discharge: 24 - 48 hours
Subjective/Interval History
-
Date of Service: September 09, 2024
Met with patient at the bedside. Overall, he feels like he is doing much better than he did the last few days. He is happy that the swelling in his hand is reduced and the redness along his forearm has reduced as well. He believes that his
current pain medications are managing his pain very well. He notes that there is some pressure still when he closes his hand but it is markedly reduced since the day prior. He shared that unfortunately the cat that bit him was put to rest
yesterday. Patient was justifiably tearful and emotional at the bedside over the loss of his animal family member. Emotional support given at the bedside.
Objective Data
-
Labs:
Laboratory Results
09/09/24
05:29
WBC 9.7
Hgb 13.2
Hct 39.4
Plt Count 230
Sodium 143
Potassium 4.3
Chloride 110 H
Carbon Dioxide 24
BUN 16
Creatinine 1.2
Glucose 86
Calcium 9.0
Total Bilirubin 0.6
AST 21
ALT 15
Alkaline Phosphatase 66
Vital Signs:
Vital Signs
Temp Pulse Resp BP Pulse Ox
98.0 F 64 18 137/74 99
09/09/24 07:00 09/09/24 07:00 09/09/24 07:00 09/09/24 07:00 09/09/24 07:00
I&O
09/08/24 09/09/24 09/10/24
06:59 06:59 06:59
Intake Total 1080 / 1080 1240 / 1240
Balance 1080 / 1080 1240 / 1240
Review of Systems
-
History Source: Patient
Constitutional: Reports No Symptoms
EENT: Reports No Symptoms Reported
Respiratory: Reports No Symptoms
Cardiac: Reports No Symptoms
Abdomen/GI: Reports No Symptoms
Breast: Reports No Symptoms
Genitourinary: Reports No Symptoms
Musculoskeletal: Reports Other (Tightness of Right hand)
Skin: Reports Other (Erythema and warmth of right hand.)
Neuro: Reports No Symptoms
Endocrine: Reports No Symptoms
Hematologic / Lymphatic: Reports No Symptoms
Physical Exam
-
General: Well Developed, Well Nourished, No Apparent Distress and Comfortable
HEENT: Normocephalic, Atraumatic and Moist Mucous Membranes
Respiratory: Clear to Auscultation; Negative Wheezes, Rales, Rhonchi or Crackles
Cardiac: Regular Rhythm and S1/S2
Breast: Deferred by me
GI: Soft, Nontender, Nondistended and Normal Bowel Sounds
Rectal: Deferred by Provider
Genito-urinary: Deferred by me
Musculoskeletal: No Clubbing
Skin: Warm, Dry and Rash (Erythema and warmth of right hand.)
Neuro: Awake, Alert, Oriented and AO x 3
Psych: Calm
[2024-09-09] MEDS: VITAMIN D3 (cholecalciferol) 25 MCG PO (08:13)
--- NOTE | 2024-09-09 12:59 | W.PN.ID1 ---
Date of Service
Date of Service: September 09, 2024
Today's Communication
Continue antibiotics. See below�
Assessment / Plan
Cat bite right hand
Right hand cellulitis
Suspected right hand tenosynovitis
Right forearm lymphangitis
Hx HLD
Recommendations:
Continue with Unasyn 3 g IV every 6 hours while inpatient. At discharge, transition to Augmentin 875 mg p.o. twice daily, x 21 days.
Right upper elevation
Continue with warm compresses 4-5 times a day x 20 minutes.
Patient counseled to watch for any worsening erythema, edema, increasing pain or decreased range of motion of the hand and to call either orthopedics or myself immediately.
����������������������������������������������������������
Chief Complaint
-: Cellulitis and Other (Cat bite)
Subjective / Review of Systems
Patient seen and examined. Patient notes increased right hand ROM and decreased swelling.
Review of Systems: No Fever and No Chills
Vital Signs / Physical Exam
Vital Signs
Vital Signs
Temp Pulse Resp BP Pulse Ox
98.0 F 64 18 137/74 99
09/09/24 07:00 09/09/24 07:00 09/09/24 07:00 09/09/24 07:00 09/09/24 07:00
Physical Exam
Constitutional: No Acute Distress, Comfortable and Non-toxic
Eyes: Sclera Anicteric
Pulmonary: Non Labored
Gastrointestinal: Non Distended
Extremities: Other (Mild decrease in edema and erythema of right hand. Increased active and passive ROM)
Neurological: Awake and Alert
Psychological: Calm
Objective Data
Lab Data
Lab Results
09/09/24 05:29
09/09/24 05:29
Estimated Creat Clear 56 ml/min 09/09/24 05:29
Total Bilirubin 0.6 mg/dl (0.2-1.3) 09/09/24 05:29
AST 21 U/L (17-59) 09/09/24 05:29
ALT 15 U/L (0-50) 09/09/24 05:29
Alkaline Phosphatase 66 U/L (38-126) 09/09/24 05:29
Most recent labs reviewed.
Micro Results:
09/07/24 17:58 Wound Culture - Final
Bite Pasteurella multocida
Gram Stain - Final
Imaging:
09/08/2024 MRI right upper extremity: Large amount of dorsal subcutaneous edema compatible with cellulitis. Mild tenosynovitis of the extensor carpi radialis brevis and longus, extensor pollicis longus, and extensor indices tendons.
09/06/2024 x-ray right hand and wrist: No evidence for acute fracture or dislocation.
Care Review
Plan reviewed with: Physician (Hospitalist)
--- NOTE | 2024-09-09 13:29 | CM ---
Patient seen at bedside with physician on . Patient states that he is good for discharge and is eager to go. Patient states that he does not have any MC at this time as he is still working. Patient for discharge home with PO antibiotics.
Patient states that he has a ride home. CM will continue to follow for discharge planning needs.
Plan; home with no needs.
[2024-09-09 15:37] VITALS: BP 130/73
--- NOTE | 2024-09-09 18:42 | W.DCSUMMARY ---
Addendum entered and electronically signed by Sumi Ramirez MD 09/09/24 19:00:
Read, reviewed, and agree. See same day progress note for additional details. Time spent coordinating care, DC planning, review of DC plan of care with resident, transition of care, review of records in EMR, med rec, consults, notes, d/w
consultants, nursing, family, and CM = 31 minutes
Original Note:
Discharge Summary
Discharge Data
Date of Admission: 09/06/24
Date of Discharge: 09/09/24
-
Pending Results: No
Hospital Course
Discharging Physician : Dr. Ramirez
Disposition : Home
Primary care physician : Conor Gardner
Principal Discharge diagnosis : Cellulitis and lymphangitis of the right hand secondary to cat bite
Chronic Discharge diagnosis : Hyperlipidemia, vitamin D deficiency
Hospital Course : Patient is a 68-year-old male with a past medical history of hyperlipidemia who presented to the emergency department with right arm pain, erythema, and swelling due to a pet cat bite. His cat bit him on 09/05/2024 at the dorsal
area of his right hand overlying the extensor tendons of the thumb at the level of the wrist, index finger, middle finger, and fourth finger at the level of the hand with erythema and lymphangitis extending into the right upper arm. He is
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 The evening prior to his presentation he took 2 Aleve and the morning of his presentation he took a Tylenol without any relief or reduction in the widespread erythema that was on
his hand. The patient reported that his cat is old and chronically ill. The cat is not been vaccinated for rabies. He believes that his tetanus shot is up-to-date. The patient was admitted to the hospital for cellulitis and lymphangitis
secondary to cat bite.
The patient was immediately started on IV Unasyn. X-ray of the hand showed no acute osseous abnormality. X-ray of the right wrist showed no evidence of acute fracture or dislocation. Orthopedics was consulted and after their assessment they
recommended conservative management with antibiotics and hand elevation. Infectious diseases was consulted. An MRI of the right hand was conducted to rule out osteomyelitis or septic arthritis. Fortunately the MRI showed no evidence of
osteomyelitis or septic arthritis but there was mild tenosynovitis of the extensor carpi radialis brevis and longus, extensor pollicis longus, and extensor indices tendons. Patient was was given IV Toradol along with Dilaudid to manage acute pain.
Within 24 hours of IV antibiotics the patient's swelling markedly reduced. By the second day of antibiotics the patient swelling had reduced to a point where there was minimal pressure when the hand was closed. Wound culture was positive for
Pasteurella multocida. Patient's IV Unasyn were converted to amoxicillin/clavulanate 875-125 mg to be taken twice a day for 21 days following discharge. Patient believed that he was ready to go home and asked to be discharged.
The patient has reached maximal benefit from this hospital admission and the patient is appropriate for discharge at the present time. There are no barriers that would impede the patient from being discharged from the hospital at the present time.
The patient should follow-up with their primary care provider within 1 week following discharge. Patient should follow-up with Dr. Duenas (orthopedics) within 1 week following discharge. Wound care instructions have been provided to the patient
prior to discharge.
Important imaging findings :
- X-ray of the right hand 3 views conducted on 09/06/2024:
No acute osseous abnormality.
- X-ray of the right wrist 3 views conducted on 09/06/2024:
There is no evidence of acute fracture or dislocation
- MRI of the right hand conducted on 09/08/2024:
Large amount of dorsal subcutaneous edema compatible with cellulitis.
Mild tenosynovitis of the extensor carpi radialis brevis and longus, extensor pollicis longus, and extensor indices tendons.
No MRI evidence for osteomyelitis or septic arthritis.
Procedure findings : Not applicable
Discharge Plan
-
Patient Disposition: Home (Routine Discharge)
Discharge Diagnosis/Procedures: Cellulitis and lymphangitis of the right hand secondary to cat bite, hyperlipidemia, vitamin D deficiency
Condition: Good
Diet: As tolerated and Regular
Activity: As tolerated
Driving Restrictions: As prior to admission
Bathing Restrictions: None
Activity Restrictions/Additional Instructions:
Warm compresses 4-5 times per day for 20 minutes at a time
Referrals:
Conor Gardner CRNP [Family Provider, Family Practice] - in less than 1 week
Rashaun Ramon DO [Active, Infectious Diseases]
Referral Note: if needed
Prescriptions:
New
acetaminophen 325 mg Tablet
650 mg PO Q6HPRN PRN (Reason: mild pain/ fever>100.5F) Qty: 0 0RF
amoxicillin-pot clavulanate 875-125 mg tablet
1 tab PO Q12H 21 Days Qty: 42 0RF
Continued
simvastatin 40 mg Tablet
40 mg PO Q48H@2200
Systane (PF) 0.4-0.3 % Dropperette
1 drp BOTH EYES DAILYPRN PRN (Reason: allergies)
cholecalciferol (vitamin D3) 25 mcg (1,000 unit) Tablet
25 mcg PO DAILY
prednisolone acetate 1 % Drops,Suspension
1 drp RIGHT EYE QID
Patient Comments:
09/06/2024, pt. started using this med. yesterday (09/05/2024) for preparation for cataract surgery; was not able to find this med. in pharmacy and [facility] records.
fluocinonide 0.1 % Cream
1 applic TOPICAL DAILY PRN (Reason: itching)
Discontinued
acetaminophen [Tylenol] 325 mg Tablet
650 mg PO ONCE PRN (Reason: mild pain)
naproxen sodium [Aleve] 220 mg Tablet
440 mg PO DAILYPRN PRN (Reason: mild pain)
Discharge Orders:
Discharge Patient (As Directed); Ordered 09/09/24
Ordered By: Sumi Ramirez
Discharge Date and Time
Discharge Date/Time: 09/09/24 18:38
Print Language: [id number]
== END 2024-09-09 18:38 | disposition home or self-care (01) | DRG 868 ==
LOC: 4 WEST ACU 19:34
PROVIDERS: Clinical Nurse Specialist Family Health; Emergency Medicine; ADMITTING PHYSICIAN Internal Medicine; ATTENDING PHYSICIAN Internal Medicine; CONSULT PHYSICIAN Orthopaedic Surgery; EMERGENCY PHYSICIAN Emergency Medicine; FAMILY PHYSICIAN Nurse Practitioner Family; OTHER PHYSICIAN Internal Medicine Infectious Disease
DX: A28.0 Pasteurellosis (principal); L03.113 Cellulitis of right upper limb; S61.451A Open bite of right hand, initial encounter; E78.5 Hyperlipidemia, unspecified; E55.9 Vitamin D deficiency, unspecified; M65.941 Unspecified synovitis and tenosynovitis, right hand; L30.9 Dermatitis, unspecified; H93.19 Tinnitus, unspecified ear; W55.01XA Bitten by cat, initial encounter; Y93.89 Activity, other specified; Y92.009 Unspecified place in unspecified non-institutional (private) residence as the place of occurrence of the external cause; Z82.49 Family history of ischemic heart disease and other diseases of the circulatory system
CPT/HCPCS: 73110; 73130; 73218; 80053; 85025; 87070; 87077; 87205; 93005; 96374; 96375; 97166; 99285